=== PATIENT | female | born 1985 | race Caucasian/White ===

== ENCOUNTER 2016-11-22 09:20 | Inpatient (IN) | payer BC ==
[~2016-11-22] VITALS: Ht 165.1 cm; Wt 80.7 kg
--- NOTE | ~2016-11-22 | HP ---
ADMIT: 11/22/2016 RM/LOC: 223 [facility] MR#: [id number] 2620 [facility] [address] [place], [place] [address] DEEP WETZEL KEI Alli S [address] [address] History and Physical SEX: F AGE: 31 : 1985 DATE OF SERVICE: CHIEF COMPLAINT: Repeat . HISTORY OF PRESENT ILLNESS: This is a 31-year-old female, 2, para 1, who presents to the [facility] with an intrauterine at 39 and 1/7th weeks' gestation for a scheduled repeat section. Her estimated date of confinement is 11/28/2016, which is based of her last menstrual period and consistent with a 9-week ultrasound. Her has been complicated by history of a previous section. PAST OBSTETRICAL HISTORY: She did have one term , that was approximately 12 years ago. LABORATORY DATA: Blood type is AB positive. Antibody screen negative. Hepatitis B surface antigen negative. Rubella immune. RPR nonreactive. HIV negative. Varicella immune. Pap is normal. High-risk HPV negative. Gonorrhea and chlamydia negative. One-hour glucose tolerance test was normal. PAST MEDICAL HISTORY: She denies hypertension, diabetes, asthma, kidney or thyroid disease. PAST SURGICAL HISTORY: . SOCIAL HISTORY: She is a smoker. She denies alcohol or drug use. ALLERGIES: PENICILLIN. CURRENT MEDICATIONS: vitamins. PHYSICAL EXAMINATION: VITAL SIGNS: She is afebrile. Her vital signs are stable. GENERAL: This is a pleasant female, in no acute distress. HEENT: Head is normocephalic and atraumatic. Pupils are equal, round, and reactive to light and accommodation. Extraocular muscles are intact. NECK: Supple. HEART: Regular rate and rhythm. LUNGS: Clear bilaterally. ABDOMEN: Soft, nontender, and nondistended. Gravid. EXTREMITIES: Nontender. PELVIC: heart tones are reactive. Cervical exam is deferred. ADMIT: 11/22/2016 RM/LOC: 223 [facility] MR#: [id number] [id number] [place], [place] [address] KEI OWUSU [address] [place] [address] History and Physical SEX: F AGE: 31 : 1985 IMPRESSION: 1. This is a 31-year-old female, 2, para 1, with an intrauterine at 39 and 1/7th weeks' gestation. 2. History of a previous section. Desires repeat. PLAN: At this time, we do plan to proceed with a repeat . The risks, benefits, and alternatives have been discussed with the patient including, but not limited to the risks for bleeding; infection; potential for injury to the bowel, bladder, major vessels, or other nearby organs requiring repair. We also discussed the potential need for blood transfusion and the risks associated with this. All of her questions have been answered, and she agrees to proceed. Charlee Ireland MD/ prem JOB #: [id number] CC: Charlee Ireland, Attending Physician Mei Ley, Family Physician
--- NOTE | 2016-12-19 13:24 | OR ---
ADMIT: 11/22/2016 RM/LOC: 223 [facility] MR#: [id number] [address] [facility] [address] [place], [place] [address] DEEP WETZEL KEI Alli [address] [address] Operative/Delivery Room Report SEX: F AGE: 31 : 1985 SURGERY DATE: 11/22/2016 SURGEON: Charlee Ireland MD PREOPERATIVE DIAGNOSES: 1. Intrauterine at 39-1/7th weeks' gestation. 2. Previous section, desires repeat. POSTOPERATIVE DIAGNOSES: 1. Intrauterine at 39-1/7th weeks' gestation. 2. Previous section, desires repeat. 3. Breech presentation. 4. Delivery of a viable female at 1243 hours, weighing 6 pounds 15 ounces with scores of 6 at 1 minute, 8 at 5 minutes. PROCEDURE: Repeat low transverse section. ROCK DUST SPRAYER: 1. Mei Ley MD, Resident. 2. Shameka Conti MD ANESTHESIA: Spinal. COMPLICATIONS: None. ESTIMATED BLOOD LOSS: 500 mL. FLUIDS: Crystalloid. INDICATIONS: This is a 31-year-old female, 2, para 1, who presents to the [facility] with an intrauterine at 39-1/7th weeks' gestation for a scheduled repeat . The risks, benefits, and alternatives were discussed with the patient including, but not limited to the risk for bleeding, infection, potential for injury to the bowel, bladder, major vessels, or other nearby organs requiring repair. All of her questions were answered prior to proceeding and she agreed to proceed. FINDINGS: Normal maternal uterus, tubes, and ovaries. There were adhesions from the omentum to the uterus, mostly on the left side. Female as above. PROCEDURE IN DETAIL: The patient was properly identified. Informed consent was obtained. She was then taken to the operating room where spinal anesthesia was placed. She was then placed in the dorsal supine position with a leftward tilt and prepped and draped in usual sterile fashion. After adequate spinal anesthesia was established, a Pfannenstiel skin incision was made with a scalpel. This was carried through to the underlying layer of fascia. The fascia was incised in the midline and the incision was extended laterally using the Robles scissors. The superior aspect of the fascia was grasped with ADMIT: 11/22/2016 RM/LOC: 223 [facility] MR#: [id number] [address] [address] KEI OWUSU [address] [place] [address] Operative/Delivery Room Report SEX: F AGE: 31 : 1985 Juve clamps, elevated, and the underlying rectus muscles were dissected off. Attention was then turned to the inferior aspect of the fascia. In a similar manner, it was grasped with Juve clamps, elevated, and the underlying rectus muscles were dissected off. The rectus muscles were in the midline. The peritoneum was identified and entered bluntly. The peritoneal incision was then extended with a stretch maneuver. The bladder blade was placed. The vesicouterine peritoneum was identified, grasped with pickups, and entered sharply with the Metzenbaum scissors. The incision was extended laterally and a bladder flap was created digitally. The bladder blade was then replaced and the lower uterine segment was incised in a transverse fashion with the scalpel. The uterine incision was extended with the stretch maneuver. The bladder blade was removed and the 's breech was delivered through the uterine incision. The legs were flexed and delivered through the incision. The was delivered up to the level of the shoulder blades. The right shoulder was rotated anteriorly. The right arm was swept in front of the infant's body and delivered through the uterine incision. The was then rotated so the left shoulder was anterior. Again, the arm was swept in front of the body and delivered. The 's vertex was then flexed and delivered easily. The did have spontaneous cry and movement of all 4 extremities. The cord was clamped x2 and cut, and the infant was taken to the warmer where Dr. Dorantes was present. Cord blood was obtained. The placenta delivered with help from traction and uterine massage. The uterus was exteriorized and cleared of all clot and debris. The uterine incision was repaired with 0 Vicryl in a running, locked fashion. The adhesions from the omentum to the uterus were then taken down. There was a gap and I was worried about a possible bowel herniation, therefore I decided to take these down. One portion was thick, therefore, it was clamped, transected with electrocautery, and then tied with 0 Vicryl. Once this had been performed, the uterus was returned to the abdomen. The gutters were cleared of all clot and debris. The uterine incision was reinspected and noted to be hemostatic. The posterior aspect of the rectus fascia and the rectus muscles were made hemostatic with use of electrocautery. The rectus fascia was reapproximated with 0 Vicryl in a running, nonlocking fashion. The subcutaneous tissues were made hemostatic with use of electrocautery. They were reapproximated using 2-0 plain. Subcuticular tona and Steri-Strips were applied. The patient tolerated the procedure well. Sponge, lap, needle, and instrument counts were correct. She was taken to recover in her Labor and Delivery suite with her infant. Charlee Ireland MD/ prem JOB #: [id number] CC: Charlee Ireland, Attending Physician Mei Ley, Family Physician
--- NOTE | 2017-01-03 09:54 | HP ---
ADMIT: 11/22/2016 RM/LOC: 223 [facility] MR#: [id number] [address] [facility] [address] [place], [place] [address] DEEP WETZEL KEI Alli [address] [address] History and Physical SEX: F AGE: 31 : 1985 Corrected: 11/23/2016 0658 njv and 12/31/2016 1827 djs DATE OF SERVICE: CHIEF COMPLAINT: Scheduled repeat . HISTORY OF PRESENT ILLNESS: The patient is a 31-year-old G2, P1-0-0-1, at 38 weeks and 1 day by last menstrual period and dating ultrasound. PAST MEDICAL HISTORY: No significant history. The patient is a smoker. Smokes about 8 to 10 cigarettes a day. PAST SURGICAL HISTORY: . MEDICATIONS: 1. vitamin. 2. Iron. 3. Ranitidine. ALLERGIES: PENICILLIN. FAMILY HISTORY: Noncontributory. SOCIAL HISTORY: Again, she is a smoker, 8 to 10 cigarettes a day. Prior to becoming , she smoked at least one pack a day. No alcohol use during this . The patient works at [employer]. : No complications other than the patient being a smoker. REVIEW OF SYSTEMS: Regular uterine contractions and vaginal bleeding loss of fluid, good movement. PHYSICAL EXAMINATION: GENERAL: No acute distress. Well-developed, well- nourished female, alert and oriented x3. HEENT: Normocephalic and atraumatic. Pupils are equal, round, and reactive. Extraocular muscles are intact. NECK: Supple. Trachea is midline. Thyroid is nonpalpable. HEART: Regular rate and rhythm. LUNGS: Clear to auscultation bilaterally. ABDOMEN: Soft, nontender, and gravid. EXTREMITIES: No clubbing, no cyanosis. No edema. NEUROLOGIC: Cranial nerves II through XII are grossly intact. 2+ deep tendon reflexes bilaterally. LABS: HIV negative. RPR nonreactive. Gonorrhea and chlamydia negative. Hepatitis B surface antigen negative, rubella immune, varicella immune, Pap and HPV testing was done at the initial visit and both within normal limits. ADMIT: 11/22/2016 RM/LOC: 223 [facility] MR#: [id number] [id number] [place], [place] [address] KEI OWUSU [address] [place] [address] History and Physical SEX: F AGE: 31 : 1985 Gestation diabetes screen was negative. The one-hour glucose tolerance test was 87. She is group B Streptococcus negative and her blood type is AB positive, heart tracing at this time. heart tracing; heart rate is in the 130s with accelerations, no decelerations. Moderate variability. No contractions at this time. ASSESSMENT AND PLAN: This is a 31-year-old G1, P0, with an intrauterine at 39 weeks 1 day by last menstrual period, confirmed with ultrasound here. She is here for a scheduled repeat section. She is GBS negative. Fetus is vertex and overall reassuring. Mei Ley MD Resident / Beny Chavarria MD / modl JOB #: [id number] CC: Charlee Ireland, Attending Physician Mei Ley, Family Physician Corrected: 11/23/2016 0658 njv and 12/31/2016 1827 rohith
--- NOTE | 2017-01-15 10:56 | DS ---
ADMIT: 11/22/2016 RM/LOC: 223 [facility] MR#: [id number] [address] [facility] [address] [place], [place] [address] DEEP WETZEL KEI Alli [address] [address] General Discharge Summary SEX: F AGE: 31 : 1985 CORRECTED: 01/05/2017 1430 MAYRA ADMISSION DATE: 11/22/2016 DISCHARGE DATE: 11/24/2016 ADMISSION DIAGNOSES: 1. A 31-year-old 2 para 1, with intrauterine at 39 weeks and 1 day. 2. Repeat . 3. Group B Streptococcus negative. DISCHARGE DIAGNOSES: Status post repeat low transverse section. SURGEON: Charlee Ireland MD. ATTENDING PHYSICIAN: Shameka Dorantes MD. RESIDENT PHYSICIAN: Mei Ley MD Resident PROCEDURE: A repeat low-transverse section on 11/22/2016. HISTORY AND PHYSICAL: Briefly, the patient is a 31-year-old , with an intrauterine at 39 weeks and 1 day on the day of admission, who presented to Labor and Delivery for her repeat section. The patient previously had a section for arrest of dilation. Previous was done 13 years ago in [place]. HOSPITAL COURSE: The patient was admitted into the hospital for her repeat section. This section was performed without difficulty on 11/22/2016. Please see dictated operative report for more information. Postop, the patient was doing well. Her pain was well controlled. She had normal bleeding and her hemoglobin had decreased appropriately. On postop day #2, the patient was passing gas and voiding without difficulty. She was not having nausea or vomiting, pain was well controlled. Vital signs were stable. So, it was felt she was stable for discharge. DISPOSITION: Discharged to home. DISCHARGE CONDITION: Good. DISCHARGE MEDICATIONS: 1. Colace 100 mg twice daily. 2. Mylicon three times a day as needed. 3. vitamin daily. 4. Motrin 800 mg every 8 hours as needed. 5. Zantac 20 mg daily as needed. ADMIT: 11/22/2016 RM/LOC: 223 [facility] MR#: [id number] [address] [place], [place] [address] KEI OWUSU [facility] [place] [address] [place] [address] General Discharge Summary SEX: F AGE: 31 : 1985 6. Percocet one to two tabs 5/325 mg p.o. q.4 hours as needed. 7. Franco's nipple cream. 8. Lansinoh's cream for the nipples. The patient is to follow up in clinic with Dr. Ireland for incision check as well as Dr. Ley in 1 week. She is to avoid lifting greater than 10 pounds, avoid driving while taking narcotics, and maintain pelvic rest until that time. The patient is to call the clinic or return to the nearest emergency room should she have any pain not controlled by pain medications, heavy vaginal bleeding, intractable nausea or vomiting, temperatures greater than 100.4, or any incisional concerns. Mei Ley MD Resident / Shameka Dorantes MD / marul JOB #: [id number] CC: Charlee Ireland MD, Attending Physician Mei Ley MD Resident, Family Physician CORRECTED: 01/05/2017 1430 MAYAR
== END 2016-11-24 14:47 | disposition home or self-care (01) | DRG 766 ==
LOC: 2LDRP 09:20 → BC 09:20 → 2LDRP 09:21 → BC 11-28 08:00
PROVIDERS: ADMIT Obstetrics & Gynecology
PROC: 10D00Z1 Extraction of Products of Conception, Low, Open Approach (ICD-10-PCS; principal; 2016-11-22)
DX: O34.211 Maternal care for low transverse scar from previous cesarean delivery (principal); F17.210 Nicotine dependence, cigarettes, uncomplicated; O32.1XX0 Maternal care for breech presentation, not applicable or unspecified; O99.334 Smoking (tobacco) complicating childbirth; Z88.0 Allergy status to penicillin; Z3A.39 39 weeks gestation of pregnancy; Z37.0 Single live birth